=== PATIENT | female | born 1990 | race Two or more races ===

== ENCOUNTER → 2019-12-05 | Outpatient (CLI) | payer OTHER | END | disposition home or self-care (01) | LOC: LAB 07:56 | PROVIDERS: ATTEND Registered Nurse | DX: Z01.818 Encounter for other preprocedural examination (principal); Z11.59 Encounter for screening for other viral diseases; K21.9 Gastro-esophageal reflux disease without esophagitis | CPT/HCPCS: U0003-CS ==

== ENCOUNTER → 2019-12-05 | Outpatient (CLI) | payer OTHER ==
--- NOTE | 2019-12-05 09:06 | RAD ---
EXAM: RIGHT UPPER QUADRANT ULTRASOUND. HISTORY: Epigastric pain. COMPARISON: None. FINDINGS: Sonographic evaluation of the right upper quadrant was performed. Hyperechogenicity of the hepatic parenchyma is consistent with diffuse hepatic steatosis. There is focal fatty sparing adjacent to the gallbladder fossa. There are no suspicious sonographic lesions. The gallbladder is unremarkable without evidence of stones, wall thickening or pericholecystic fluid. There is no sonographic An sign. The common duct measures 4 mm. The visualized portions of the head and body of the pancreas reveal no abnormality. The right kidney measures 10.0 cm. Cortical thickness and echogenicity are preserved. There is no hydronephrosis. The visualized portions of the abdominal aorta and inferior vena cava are grossly patent and normal in caliber. IMPRESSION: 1. Diffuse hepatic steatosis. Electronically signed by: Shayla Wynne MD (12/05/2019 9:03 AM) [id number]
== END | disposition home or self-care (01) ==
LOC: US 07:51
PROVIDERS: ATTEND Nurse Practitioner Adult Health
DX: K21.9 Gastro-esophageal reflux disease without esophagitis (principal); K76.0 Fatty (change of) liver, not elsewhere classified; R13.10 Dysphagia, unspecified
CPT/HCPCS: 76705

== ENCOUNTER → 2019-12-09 | Day surgery (SDC) | payer OTHER ==
[~2019-12-09] MED LIST: IPRATRPIUM/ALBUTEROL 0.5/2.5MG 3 ML NEBU. NEB PRN; IV RINGERS SOLUTION,LACTATED 1,000 ML IV SCH; MIDAZOLAM HCL PF 2 MG/2 ML VIAL. IV ONE; ONDANSETRON PF 4 MG/2 ML VIAL. IV PRN; PROPOFOL 10,000 MCG/ML (20ML) VIAL IV ONE
[2019-12-09 10:07] LABS: U PREG PATIENT NEGATIVE (NEG)
[2019-12-09 10:59] VITALS: BP 97/66
== END | disposition home or self-care (01) ==
LOC: SURG 09:13
PROVIDERS: ATTEND Emergency Medicine
DX: R13.10 Dysphagia, unspecified (principal); K29.50 Unspecified chronic gastritis without bleeding; B96.81 Helicobacter pylori [H. pylori] as the cause of diseases classified elsewhere; K21.0 Gastro-esophageal reflux disease with esophagitis; K22.9 Disease of esophagus, unspecified; K31.89 Other diseases of stomach and duodenum; F32.9 Major depressive disorder, single episode, unspecified; B20 Human immunodeficiency virus [HIV] disease; Z98.890 Other specified postprocedural states; Z79.899 Other long term (current) drug therapy
CPT/HCPCS: 43239; 43450; 81025; 88305; 88342; J2704; J7120; 43235

== ENCOUNTER → 2020-04-20 | Outpatient (CLI) | payer OTHER ==
[2019-12-09 10:59] VITALS: BP 97/66
--- NOTE | 2020-04-20 15:58 | RAD ---
EXAM: Right knee, 3 views. HISTORY: Pain. COMPARISON: None. FINDINGS: 3 views of the right knee are obtained. There is no fracture, dislocation or subluxation. T here is no joint effusion. IMPRESSION: No acute osseous finding. Electronically signed by: Snow Sharma MD (04/20/2020 3:56 PM) [id number]
== END ==
LOC: DXRAD 15:37
PROVIDERS: ATTEND Physician Assistant
DX: M25.561 Pain in right knee (principal)
CPT/HCPCS: 73562